=== PATIENT | female | born 1960 | race Caucasian/White ===

== ENCOUNTER 2023-09-23 08:47 | Observation (INO) ==
--- NOTE | 2023-09-23 06:57 | History & Physical Bridge Note ---
Date of Service September 23, 2023 History & Physical Bridge Note I have examined the patient, reviewed the History & Physical and in the interval since the performance of the History & Physical I have noted the following changes of clinical significance: no changes noted
--- NOTE | 2023-09-23 06:58 | Pre Anesthesia Assessment ---
Date of Service September 23, 2023 Pre Sedation Assessment Cardiovascular + regular rate Respiratory + respiratory effort normal Pre-Sedation Airway Assessment Smoking Status: Never smoker Hx Sleep Apnea: No Hx Difficult Intubation: No Short, Thick Neck: No Thyromental Distance: < 3.5 Finger Breadths Oral Cavity: + Dental Abnormalities Mallampati Class: III ASA: ASA3 Procedure Planning Contraindications for Sedation: none Current Medications Reviewed: Yes Notes The planned sedation has been discussed with the patient. Informed Consent was obtained. I have identified the patient, determined the appropriateness of sedation and have assessed the patient immediately prior to the procedure. All medicine(s) and interventions are by my order.
[2023-09-23] MEDS ORDERED: fentaNYL citrate PF 100 MCG/2 ML VIAL IV STA (10:36)
[2023-09-23] MEDS: fentaNYL citrate PF 100 MCG/2 ML VIAL ONE ×4 (15:06→15:54)
[2023-09-23] MEDS: niCARdipine HCL INJ 2.5 MG/ML 10 ML AMP ONE (15:07)
[2023-09-23] MEDS: HEPARIN (PORCINE) 1000 UNIT/ML 10 ML (CATH LAB USE ONLY) ONE (15:07)
[2023-09-23] MEDS: NITROGLYCERIN/D5W 100MCG/ML 20ML SYR ONE (15:08)
[2023-09-23] MEDS: OPTIRAY 350 ONE (15:08)
[2023-09-23] MEDS: MIDAZOLAM HCL 5 MG/ML 1 ML VIAL ONE (15:15)
[2023-09-23] MEDS: CLOPIDOGREL BISULFATE 300 MG TAB ONE ×2 (15:16→15:17)
[2023-09-23] MEDS: hydrALAZINE HCL 20 MG/ML VIAL ONE (15:16)
[2023-09-23] MEDS: LIDOCAINE 1% LOCAL 20 ML VIAL ONE (15:16)
[2023-09-23] MEDS: PROTAMINE SULFATE 10 MG/ML 5 ML VIAL IV ONE (15:17)
--- NOTE | 2023-09-23 17:07 | Post Anesthesia Assessment ---
Date of Service September 23, 2023 Post Sedation Assessment Vital Signs Temp Pulse Pulse Resp BP Pulse Ox O2 Del Method 09/23/23 16:41 16 128/82 98 Room Air 09/23/23 16:39 107 H 09/23/23 16:00 98.1 F 95 H 18 127/92 98 Room Air 09/23/23 15:45 98.1 F 102 H 18 128/74 98 Room Air 09/23/23 15:30 98.1 F 104 H 18 118/83 98 Room Air 09/23/23 09:16 98.6 F 85 18 157/99 H 97 Room Air Recovery Score Activity: Moves 4 extremities Respiration: Deep Breath/Cough Circulation: +/-20% PreAnes Value Consciousness: Fully Awake Oxygen Saturation: > 92% On Room Air Post Anesthesia Score: 10 Discharge Sedation Level of Care: Fast Track Phase II Post Sedation Plan On clinical assessment, the patient appears to have tolerated the sedation without complications. Patient is recovering as anticipated. Patient will continue to be monitored by nursing and may be discharged when sedation discharge criteria are met per below protocol. Upon Completions of procedure up to 15 minutes continue every 5 minute vital signs and the P.A.R. score; then discharge to a Phase I or Fast Track to Phase II per the following guidelines: * Discharge Patient to appropriate Phase II area if PAR is 8 or greater or return to pre- procedure baseline. The post - procedure orders will be as directed. * If PAR score is less than 8 or not return to pre-procedure baseline then p atient will follow Phase I monitoring till PAR is reached for Phase II. The Phase I may be done in procedure room or may call to secure a Phase I area. * If naloxone or flumazenil are used for reversal, hold in Phase I for continued monitoring from when last reversal dose was given for a minimum of 60 minutes or longer pending the nurse and/or physician discretion of patient condition before discharge to Phase II. Please call the Sedation Physician to re-evaluate and complete post-note for discharge to Phase II area. Do NOT discharge from procedure sedation or Phase 1 until post- sedation evaluation note is complete by procedure /sedation MD Sedation Discharge Instructions to be given to the patient at discharge to home.
[2023-09-23] MEDS ORDERED: ONDANSETRON INJ 2 MG/ML 2 ML VIAL IV PRN (17:08)
[2023-09-23] MEDS: SODIUM CHLORIDE 0.9% 1,000 ML IV SCH (18:02)
[2023-09-23] MEDS: HYDROCODONE/ACETAMOPHEN 5/325MG TAB PO PRN (23:12)
--- NOTE | 2023-09-23 23:32 | Post Operative Brief Note ---
PG Immediate Post Op with CF Date of Surgery September 23, 2023 Pre & Post Diagnosis PAD I identified the patient and participated in the time-out.: Yes Procedure Operation Date: 09/23/23 10:00 Actual Procedures p Angio Extremity Bilateral - MD derrick Ward Iliac Stent Balloon - MD derrick Ward Placement Art Occlusive Device - MD derrick Ward Ultrasound Vascular Access - Dillon Dietz MD Surgeon Dillon Dietz MD Dermatology Nurse Practitioner Deibler Estimated Blood Loss 30 Findings See Below LT - 100% proximal DARIO occlusion, diffuse mild to moderate TRANSLATOR DEAF disease. 100% mid to distal SFA occlusion. Popliteal, proximal tibial patent. RT - 80% EIA. Later 100% ostial DARIO occlusion after suspected iatrogenic dissection. Successful stenting of RT ostial DARIO to distal EIA with single self expanding stent (7.0 x 120 Lifestream). Successful stenting of LT ostial/proximal DARIO with single self expanding stent (8.0 x 40 Luminex). LT TRANSLATOR DEAF closure Starclose RT TRANSLATOR DEAF closure Mynx -- failed, manual hold and heparin reversal with protamine. RT groin hematoma present immediately post procedure Anesthesia Type RN Sedation Complications none Disposition Accompanied Patient To Recovery: Yes Disposition: PCU Overlapping Procedure I was present for: the critical portions of procedure.
[2023-09-24] MEDS: MELATONIN 3 MG TAB PO ONE (02:30)
[2023-09-24 06:58] LABS: Basophils # (auto) 0.05 K/uL (0.00-0.20); Basophils % (auto) 0.4 %; Eosinophils # (auto) 0.07 K/uL (0.00-0.50); Eosinophils % (auto) 0.6 %; Hematocrit (blood only) 41.8 % (37.0-47.0); Hemoglobin 14.3 g/dl (12.0-16.0); Immature Granulocytes # (auto) 0.13 K/uL (0.01-0.20); Immature Granulocytes % (auto) 1.1 %; Lymphocytes # (auto) 2.59 K/uL (1.20-3.40); Lymphocytes % (auto) 22.8 %; Mean Corpuscular Hemoglobin 30.4 pg (25.0-34.0); Mean Corpuscular Hgb Conc 34.2 g/dL (32.0-36.0); Mean Corpuscular Volume 88.7 fL (80.0-100.0); Mean Platelet Volume 9.3 fL (9.4-12.4); Monocytes # (auto) 1.34 K/uL (0.11-0.59); Monocytes % (auto) 11.8 %; Neutrophils # (auto) 7.18 K/uL (1.40-6.50); Neutrophils % (auto) 63.3 %; Platelet Count 257 K/uL (130-400); RDW Coefficient of Variation 13.1 % (11.5-14.5); RDW Standard Deviation 42.6 fL (36.4-46.3); Red Blood Count 4.71 M/uL (4.20-5.40); White Blood Count 11.36 K/ul (4.8-10.8)
[2023-09-24 07:13] LABS: BUN Creatinine Ratio 16.3 (10-20); Calcium 9.5 mg/dl (8.6-10.3); Creatinine Clr Calc Pharmacy 89.8 ml/min; Est GFR (Non-African American) 104.4 ml/min; Potassium 3.5 mmol/L (3.5-5.1)
[2023-09-24] MEDS: ASPIRIN 81 MG ECTAB PO SCH (08:00)
[2023-09-24] MEDS: CLOPIDOGREL BISULFATE 75 MG TAB PO SCH (08:01)
[2023-09-24] MEDS: ATORVASTATIN 40 MG TAB PO SCH (08:01)
--- NOTE | 2023-09-25 12:44 | Endovascular Procedure Note ---
PG Endovascular Procedure Rpt Pre & Post Diagnosis Peripheral arterial disease I identified the patient and participated in the time-out.: Yes Procedure Operation Date: 09/23/23 10:00 Actual Procedures p Angio Extremity Bilateral - MD derrick Ward Iliac Stent Balloon - MD derrick Ward Placement Art Occlusive Device - MD derrick Ward Ultrasound Vascular Access - Dillon Dietz MD Surgeon Dillon Dietz MD Windshield Technician Deibler Estimated Blood Loss 30 Findings See Below Abdominal aorta--calcified, no significant aneurysmal or stenotic disease Right lower extremity-- -Common nyary71-42% disease -External iliacdiffuse mid to distal disease up to 90% (occlusive with sheath placement) -Internal iliacoccluded -CFA30% diffuse disease -Profundawidely patent -SFApatent proximal Left lower extremity-- -Common % proximal short occlusion. Reconstitution in the mid DARIO -External frgdi24-31% mid stenosis -Internal iliacpatent -IAU34-26% diffuse disease. -Profundawidely patent -SFAdiffuse disease prior to 100% mid occlusion (~100 mm occlusion). -Poplitealreconstitutes at proximal popliteal. Remainder popliteal with mild diffuse disease -ATApatent proximally -PTApatent proximally -Peronealpatent proximal Anesthesia Type RN Sedation Radiation Exposure (mGv) Radiation (mGy): 242 Complications none Disposition Accompanied Patient To Recovery: Yes Description of Procedure Right PERSONAL CARE ATTENDANT access obtained under ultrasound guidance, short 5Fr sheath placed Abdominal aortogram and proximal left lower extremity angiogram performed with RIM catheter. Attempt made to navigate wire across proximal occlusion with glide advantage wire unsuccessful and appeared to result in proximal dissection of right DARIO. Left PERSONAL CARE ATTENDANT access obtained under ultrasound guidance with micropuncture wire and placement of 6 Fr sheath Left DARIO occlusion crossed retrograde with glide advantage wire and angled glide catheter. Left DARIO occlusion dilated with 5.0 balloon Via right PERSONAL CARE ATTENDANT access right DARIO and EIA dilated with 5.0 balloon RT DARIO ostium to distal EIA stented with 7.0 x 120 mm Lifestream self-expanding stent Stent postdilated with 7.0 balloon. Left DARIO stented with 8.0 x 40 mm Eluminex self-expanding stent Stent postdilated with 3.0 balloon Post procedure good angiographic result, no evidence of dissection and brisk bilateral iliac flow. Contrast used: 150 ml Moderate sedation: 9034-1481 Access closure: LT PERSONAL CARE ATTENDANT StarClose; RT PERSONAL CARE ATTENDANT mynx (mynx failed and manual hold with protamine). Summary: 1. Left lower extremity --100% proximal common iliac occlusion. Diffuse mild to moderate external iliac, PERSONAL CARE ATTENDANT, proximal SFA disease. 100% distal SFA occlusion. Patent popliteal and proximal infrapopliteal arteries. 2. Right lower extremity --40% common iliac (DARIO with flow-limiting iatrogenic dissection during procedure), 90% mid external iliac artery stenosis. 3. Successful stenting of left proximal common iliac artery occlusion with single self-expanding stent (8.0 x 40 mm). 4. Successful stenting of right common iliac and external iliac artery disease with single self-expanding stent (7.0 x 120 mm). Recommendations: Continue DAPT with ASA/Clopidogrel for at least 1 month. ASCVD risk factor modification, started on statin Plan on additional endovascular intervention to left SFA occlusion sometime in next several weeks I attest to the content of the Intraoperative Record and any orders documented therein. Any exceptions are noted below. Vascular Charges Angiography/Venography Procedure 1: Angiography/Venography charges: [id number] Aortography, abd + b/l iliofem LE, catheter, radiological S&I Lower Extremity Interventions Procedure 1: Lower Extremity Intervention charges: [id number] Stent placement(s), iliac artery, unilateral, initial vessel; Procedure 2: Lower Extremity Intervention charges: [id number] Stent plcmt, iliac artery, each add'l ipsilateral iliac Additional Services Procedure 1: Additional Services Charges: 97458 Ultrasound guidance - vascular access Procedure 2: Additional Services Charges: 37435 Ultrasound guidance - vascular access Procedure 3: Additional Services Charges: 24696 Moderate sedation initial 15 min Procedure 4: Additional Services Charges: 95355 Moderate sedation, each additional 15 min
--- NOTE | 2023-09-25 16:20 | Discharge Summary ---
Date of Service September 25, 2023 Admission HPI Per Admitting Provider Mrs. Alexander is a very pleasant 63 year old woman who presents for evaluation of PAD. Medical history significant for prior tobacco use. Patient was referred by Dr. Franklin. Patient says several months ago started noticing discoloration of her left lateral foot and 5th toe. She thought her foot was rubbing on her shoe and put mole skin on the area. When she removed it she believes it tore some skin off with it leaving several small ulcers. She eventually developed pain in the foot and toe as well and now has significant, almost constant pain. Pain is worse when foot is elevated or cold. She has trouble sleeping at night from the pain. Walking does increase the pain. Prior to this would get some lower leg discomfort when walking longer distances intermittently. No history of cardiovascular disease. She is a former smoker. Denies diabetes. Does not take any medications. Discharge Data Procedures Performed Operation Date: 09/23/23 10:00 Actual Procedures p Angio Extremity Bilateral - Dillon Dietz MD s Iliac Stent Balloon - Dillon Dietz MD s Placement Art Occlusive Device - Dillon Dietz MD s Ultrasound Vascular Access - Dillon Dietz MD Hospital Course (1) PAD (peripheral artery disease): Patient underwent successful stenting of left DARIO occlusion as well as stenting of right DARIO/EIA severe disease. Postprocedure was admitted for observation post complex procedure and for access site management. Overnight patient remained hemodynamically stable. Postprocedure labs were stable. On hospital day 2 no apparent access site complications. She was feeling well and discharged home on new DAPT with aspirin, clopidogrel and new atorvastatin. She will follow-up with vascular medicine in the next 1 to 2 weeks. Plan on additional endovascular intervention to left SFA occlusion in the near future. Continue follow-up with Dr. Franklin for wound management. Discharge Instructions Home Medications aspirin 81 mg capsule,delayed release 81 mg PO DAILY 09/23/23 [History Confirmed 09/23/23] acetaminophen 325 mg tablet (Tylenol) 325 mg PO Q6H PRN fever or pain #30 tabs 09/24/23 [Rx] atorvastatin 40 mg tablet 80 mg (2 x 40 mg) PO QAM #30 tabs 09/24/23 [Rx] clopidogrel 75 mg tablet 75 mg PO QAM #30 tabs 09/24/23 [Rx] Coding Level of Care Code 19141 IN/OBS DISCH 30 MIN/LESS Diagnoses PAD (peripheral artery disease) I73.9
== END 2023-09-24 11:30 | disposition home or self-care (01) ==
LOC: CC 08:47 → 2S 08:47
PROC: CLB.AEB (2023-09-23 10:00)